=== PATIENT | female | born 1960 | race Caucasian/White ===

== ENCOUNTER 2020-06-28 20:04 | Inpatient (IN) | payer MEDICARE ==
[~2020-06-28] VITALS: Ht 172.7 cm; Wt 77.7 kg
[2020-06-28] MEDS ORDERED: normal saline 1000ml 1,000 ML IV ONE (20:40)
[2020-06-28 20:46] LABS: MEAN PLATELET VOLUME 9.8 FL (7.4-10.4)
[2020-06-28 20:48] LABS: BASOPHILS # (AUTO) 0.1 X10'3 (0-0.2); BASOPHILS % (AUTO) 0.5 % (0-1); EOSINOPHILS % (AUTO) 0.1 % (0-6); HEMATOCRIT 37.6 % (35.0-45.0); HEMOGLOBIN 12.7 g/dl (12.0-16.0); LYMPHOCYTES # (AUTO) 0.9 X10'3 (1.1-4.8); LYMPHOCYTES % (AUTO) 5.7 % (21-51); MEAN CORPUSCULAR HEMOGLOBIN 29.6 PG (27.0-31.0); MEAN CORPUSCULAR HGB CONC 33.8 g/dL (33.0-36.5); MEAN CORPUSCULAR VOLUME 87.6 FL (78-98); MONOCYTES # (AUTO) 0.8 X10'3 (0-0.9); MONOCYTES % (AUTO) 5.5 % (2-12); NEUTROPHILS # (AUTO) 13.2 X10'3 (1.8-7.7); NEUTROPHILS % (AUTO) 88.2 % (42-75); PLATELET COUNT 135 X10'3 (140-440); RED CELL DISTRIBUTION WIDTH 14.2 % (11.5-14.5); WHITE BLOOD COUNT 14.9 X10'3 (4.5-11.0)
--- NOTE | 2020-06-28 20:50 | NUR ---
PATIENT STATES THAT SHE IS A DAILY DRINKER, "2 CANS MALT LIQUOR"
[2020-06-28 20:53] LABS: CLARITY,URINE SLIGHTLY CLOUDY (Clear); COLOR,URINE YELLOW (Yellow); GLUCOSE, URINE >=1000 mg/dl (Neg); KETONES,URINE NEGATIVE (Neg); LEUKOCYTE ESTERASE ,URINE TRACE (Neg); NITRITES, URINE NEGATIVE (Neg); OCCULT BLOOD,URINE SMALL (Neg); PH,URINE 5.5 (4.8-8.0); PROTEIN,URINE NEGATIVE (Neg); UROBILINOGEN,URINE 0.2 E.U/dL (0.2-1.0)
[2020-06-28 20:59] LABS: BACTERIA,URINE 3+ /HPF (Neg); RBC,URINE 0-2 /HPF (0-2); SQUAMOUS EPITHELIAL CELL,UR FEW /LPF (FEW); UA COLLECTION TYPE STRAIGHT CATH; URINE AMPHETAMINE SCREEN POSITIVE (Neg); URINE BARBITUATE SCREEN NEGATIVE (Neg); URINE BENZODIAZEPINES SCREEN NEGATIVE (Neg); URINE CANNABINOID SCREEN NEGATIVE (Neg); URINE COCAINE SCREEN NEGATIVE (Neg); URINE METHADONE SCREEN NEGATIVE (Neg); URINE OPIATE SCREEN NEGATIVE (Neg); URINE PHENCYCLIDINE SCREEN NEGATIVE (Neg); WBC,URINE 20-30 /HPF (0-4)
[2020-06-28 20:59] LABS: ALANINE AMINOTRANSFERASE 80 U/L (12-78); ALBUMIN 2.9 G/DL (3.4-5.0); ALBUMIN/GLOBULIN RATIO 0.7 (1.1-1.5); ALKALINE PHOSPHATASE 249 IU/L (46-116); ANION GAP 8 (8-16); ASPARTATE AMINO TRANSFERASE 41 U/L (10-37); BLOOD UREA NITROGEN 17 MG/DL (7-18); BUN/CREATININE RATIO 9.7 (6.6-38.0); CALCIUM 8.5 MG/DL (8.5-10.1); CHLORIDE 94 MMOL/L (99-107); CREATININE 1.76 MG/DL (0.40-0.90); ETHANOL < 0.010 GM/DL (0.0-0.010); POTASSIUM 4.8 MMOL/L (3.5-5.1); SODIUM 130 MMOL/L (135-145); TOTAL CARBON DIOXIDE 28.5 MMOL/L (24-32); TOTAL PROTEIN 7.2 G/DL (6.4-8.2); eGFR 30 ML/MIN
[2020-06-28 21:02] LABS: GLUCOSE 506 MG/DL (70-104)
[2020-06-28] MEDS ORDERED: acetaminophen 325mg tablet PO ONE (21:05)
[2020-06-28] MEDS ORDERED: CefTRIAXone/D5W-Rocephin 1gm 50 ML IV ONE (21:35)
[2020-06-28] MEDS ORDERED: ATOR40TA PO (22:05)
[2020-06-28] MEDS ORDERED: ROPI0.252 PO (22:05)
[2020-06-28] MEDS ORDERED: DULO20CA50 PO (22:05)
[2020-06-28] MEDS ORDERED: LOSA25TA96 PO (22:05)
[2020-06-28] MEDS ORDERED: CHOL50004 PO (22:05)
[2020-06-28] MEDS ORDERED: VIT B-12 PO (22:05)
[2020-06-28] MEDS ORDERED: GABA600T13 PO (22:05)
[2020-06-28] MEDS ORDERED: LOPE2TAB25 PO (22:05)
[2020-06-28] MEDS ORDERED: HYDR-3686 PO (22:05)
[2020-06-28] MEDS ORDERED: TRAZ-251 PO (22:05)
[2020-06-28] MEDS ORDERED: FURO-150 PO (22:05)
[2020-06-28] MEDS ORDERED: OMEP-50 PO (22:05)
[2020-06-28] MEDS ORDERED: magnesium hydroxide 30ml (MOM) UD suspension PO PRN (23:15)
[2020-06-28] MEDS ORDERED: potassium CL 10mEq/100ml bag 100 ML IV PRN ×2 (23:15)
[2020-06-28] MEDS ORDERED: mag hydrox/Alum hydrox/simeth 30ml oral suspension PO PRN (23:15)
[2020-06-28] MEDS ORDERED: acetaminophen 325mg tablet PO PRN (23:15)
[2020-06-28] MEDS ORDERED: ondansetron/PF 4mg/2ml inj IV PRN (23:15)
[2020-06-28] MEDS ORDERED: potassium Cl 20 mEq SR tablet PO PRN ×2 (23:15)
[2020-06-28] MEDS ORDERED: normal saline 1000ml 1,000 ML IV SCH (23:15)
[2020-06-28] MEDS ORDERED: insulin Lispro (HumaLOG) vial - multi-dose SQ SCH (23:20)
[2020-06-28] MEDS ORDERED: dextrose 50%-water 50ml dispensing syringe IV PRN ×2 (23:20)
[2020-06-28] MEDS ORDERED: dextrose ORAL solution 15 GM/59 ML bottle PO PRN ×2 (23:20)
[2020-06-28] MEDS ORDERED: glucagon, human recombinant 1mg kit SUBCUT PRN (23:20)
[2020-06-28] MEDS ORDERED: MESSAGE TO PHARMACY PO ONE (23:20)
[2020-06-28 23:46] LABS: HEMOGLOBIN A1C 10.9 % (4.5-6.2)
--- NOTE | 2020-06-29 00:08 | NUR ---
Received report from PB Eldridge. Awaiting patient arrival to the floor. This RN verbalized that Primary care RN have not had a chance to give insulin for patient. Will assess and follow protocol.
[2020-06-29 00:20] VITALS: BP 149/74
[2020-06-29] MEDS ORDERED: insulin Lispro (HumaLOG) vial - multi-dose SQ ONE (00:35)
[2020-06-29 05:57] LABS: EOSINOPHILS # (AUTO) 0.2 X10'3 (0-0.9); MONOCYTES # (AUTO) 0.6 X10'3 (0-0.9); MONOCYTES % (AUTO) 5.7 % (2-12); NEUTROPHILS % (AUTO) 81.6 % (42-75)
[2020-06-29 06:02] LABS: BASOPHILS # (AUTO) 0.1 X10'3 (0-0.2); BASOPHILS % (AUTO) 0.5 % (0-1); EOSINOPHILS % (AUTO) 1.7 % (0-6); HEMATOCRIT 34.1 % (35.0-45.0); HEMOGLOBIN 11.7 g/dl (12.0-16.0); LYMPHOCYTES # (AUTO) 1.1 X10'3 (1.1-4.8); LYMPHOCYTES % (AUTO) 10.5 % (21-51); MEAN CORPUSCULAR HEMOGLOBIN 29.9 PG (27.0-31.0); MEAN CORPUSCULAR HGB CONC 34.3 g/dL (33.0-36.5); MEAN CORPUSCULAR VOLUME 87.1 FL (78-98); MEAN PLATELET VOLUME 9.2 FL (7.4-10.4); NEUTROPHILS # (AUTO) 8.9 X10'3 (1.8-7.7); PLATELET COUNT 138 X10'3 (140-440); RED BLOOD COUNT 3.91 X10'6 (4.20-5.60); RED CELL DISTRIBUTION WIDTH 14.3 % (11.5-14.5); WHITE BLOOD COUNT 10.9 X10'3 (4.5-11.0)
--- NOTE | 2020-06-29 06:15 | NUR ---
Problems reprioritized. Patient report given, questions answered & plan of care reviewed with PB Del Valle.
[2020-06-29 06:21] LABS: ALANINE AMINOTRANSFERASE 65 U/L (12-78); ALBUMIN 2.4 G/DL (3.4-5.0); ALBUMIN/GLOBULIN RATIO 0.6 (1.1-1.5); ALKALINE PHOSPHATASE 209 IU/L (46-116); ANION GAP 6 (8-16); ASPARTATE AMINO TRANSFERASE 37 U/L (10-37); BILIRUBIN,TOTAL 0.7 MG/DL (0.1-1.0); BLOOD UREA NITROGEN 18 MG/DL (7-18); BUN/CREATININE RATIO 15.5 (6.6-38.0); CALCIUM 8.5 MG/DL (8.5-10.1); CHLORIDE 101 MMOL/L (99-107); CREATININE 1.16 MG/DL (0.40-0.90); GLUCOSE 315 MG/DL (70-104); POTASSIUM 3.9 MMOL/L (3.5-5.1); SODIUM 137 MMOL/L (135-145); TOTAL CARBON DIOXIDE 29.6 MMOL/L (24-32); TOTAL PROTEIN 6.3 G/DL (6.4-8.2); eGFR 48 ML/MIN
--- NOTE | 2020-06-29 07:11 | NUR ---
Patient in room [facility]. I have received report from Eusebio AMBRIZ and had the opportunity to ask questions and assume patient care.
[2020-06-29 07:50] VITALS: BP 108/61
[2020-06-29] MEDS ORDERED: K and/or MAG REPLACEMENT MC SCH (08:00)
[2020-06-29] MEDS ORDERED: heparin, porcine 5000 units/ml vial SQ SCH (08:00)
[2020-06-29] MEDS ORDERED: SULF1TAB49 PO (10:03)
--- NOTE | 2020-06-29 12:45 | NUR ---
Pt Dc to home with her best friend. Pt is A & o x4, Pt verbalizes understanding of all DC orders. Pt was given a printed prescription for antibiotics ans was educated on the importance of finishing up all antibiotics. Pt's belongings were packed and pt carried them out. Pt wheeled to the front where her friend pick her up.
[2020-06-29] MEDS ORDERED: LEVO500T89 PO (18:34)
--- NOTE | 2020-06-29 19:28 | NUR ---
Pt had blood culture come back positive post-discharge. Called prescription information to patients friend Val, her only contact at [phone]. Requested to have perscription called to [facility] in [place] they are closed today. Tried to call friend back she did not answer. Will attempt to contact [facility] again in the morning. Explained to patients friend necessary to have this antibiotic to treat the infection.
[2020-06-29] MEDS ORDERED: CefTRIAXone/D5W-Rocephin 1gm 50 ML IV SCH (21:00)
[2020-06-29] MEDS ORDERED: insulin glargine (Lantus) pen - multi-dose SQ SCH (21:00)
== END 2020-06-29 12:40 | disposition home health service (06) | DRG 871 ==
LOC: ER 20:05 → SUR 3N 23:13 → CMPBEDREQ 06-29 05:20
PROVIDERS: ADMIT Internal Medicine; ATTEND Internal Medicine
DX: A41.9 Sepsis, unspecified organism (principal); G93.41 Metabolic encephalopathy; N39.0 Urinary tract infection, site not specified; N17.9 Acute kidney failure, unspecified; Z20.828 Contact with and (suspected) exposure to other viral communicable diseases; E11.65 Type 2 diabetes mellitus with hyperglycemia; W18.39XA Other fall on same level, initial encounter; S00.81XA Abrasion of other part of head, initial encounter; E78.5 Hyperlipidemia, unspecified; I10 Essential (primary) hypertension; R30.0 Dysuria; R74.01 Elevation of levels of liver transaminase levels; M25.522 Pain in left elbow; Z79.899 Other long term (current) drug therapy; Y93.89 Activity, other specified; Y92.89 Other specified places as the place of occurrence of the external cause; Y99.8 Other external cause status
CPT/HCPCS: 36415; 70450; 71045; 80053; 80305; 80320; 81001; 82948; 83036; 83605; 84145; 85025; 85610; 87040; 87077; 87081; 87088; 87186; 87635; 93005; 96365; 99285; C9803; G0378; J0696; J1644; J1815; J7030